=== PATIENT | female | born 1955 | race Caucasian/White ===

== ENCOUNTER 2023-09-22 06:11 | Observation (INO) ==
[~2023-09-22 06:11] MED LIST: Naloxone 0.4 mg VIAL 0.4 mg/ml 1 ml VIAL IV PRN; Ondansetron 4 mg VIAL 2 MG/ML 2 ml VIAL IV PRN; fentaNYL 100 mcg/2 ml 50 MCG/ML VIAL IV PRN
[2023-09-22] MEDS ORDERED: Tranexamic Acid 1 GM/100ML BAG 2,000 MG/200 ML BAG IV ONE (06:35)
[2023-09-22] MEDS ORDERED: ceFAZolin 2 GM PREMIX 2 GM/50 ML BAG ONE (06:35)
[2023-09-22] MEDS ORDERED: Propofol 10 MG/ML 20 ML BTL ONE (07:08)
[2023-09-22] MEDS ORDERED: Dexamethasone IV 4 MG/ML VIAL 1 ml VIAL ONE ×2 (07:13→07:19)
[2023-09-22] MEDS ORDERED: Midazolam 2 mg/2 ml VIAL 1 mg/ml 2 ml VIAL (2 mg) ONE ×2 (07:13)
[2023-09-22] MEDS ORDERED: fentaNYL 100 mcg/2 ml 50 MCG/ML VIAL ONE (07:14)
[2023-09-22 07:15] LABS: Rapid COVID-19 Molecular Detected (Undetected)
[2023-09-22] MEDS ORDERED: Ondansetron 4 mg VIAL 2 MG/ML 2 ml VIAL ONE (07:19)
[2023-09-22] MEDS ORDERED: Glycopyrrolate IV 0.2 MG/ML 1 ML VIAL ONE (07:19)
[2023-09-22] MEDS ORDERED: Bupivacaine-MPF SPINAL 7.5 MG/ML - 2ML AMP ONE (07:25)
[2023-09-22] MEDS ORDERED: ROPIVACAINE 5 MG/ML 30 ML BTL (0.5%) ONE (07:39)
[2023-09-22] MEDS ORDERED: Bupivacaine 0.5% 50 ML MDV VIAL ONE (08:03)
[2023-09-22] MEDS ORDERED: Ondansetron ODT 4 mg TAB 4 MG TAB PO PRN (11:35)
[2023-09-22] MEDS ORDERED: Lactulose 30 ml UDC PO PRN (11:35)
[2023-09-22] MEDS ORDERED: Morphine 2 MG/ML SYRINGE IV PRN (11:35)
[2023-09-22] MEDS ORDERED: Magnesium Hydroxide LIQ 30 ML UDC PO PRN (11:35)
[2023-09-22] MEDS ORDERED: Ondansetron 4 mg VIAL 2 MG/ML 2 ml VIAL IV PRN (11:35)
[2023-09-22] MEDS: Lactated Ringers 1000 ml BAG 1,000 ML IV SCH (13:35)
[2023-09-22 15:57] VITALS: BP 130/63
[2023-09-22] MEDS: ceFAZolin 1 GM ADVAN 1 GM in NS 0.9% 50 ML 50 ML IVPB SCH (16:25)
[2023-09-22] MEDS ORDERED: Magnesium Hydroxide LIQ 30 ML UDC PO SCH (21:00)
[2023-09-23] MEDS ORDERED: Vitamin THERAPEUTIC TAB PO SCH (09:00)
== END 2023-09-22 17:30 | disposition home or self-care (01) ==
LOC: AA 06:11 → INTOOBSV 06:11 → EDSTATUS 09:30 → SSU 11:35
PROVIDERS: ADMIT Orthopaedic Surgery Adult Reconstructive Orthopaedic Surgery; ATTEND Orthopaedic Surgery Adult Reconstructive Orthopaedic Surgery